=== PATIENT | male | born 1945 | race Caucasian/White ===

== ENCOUNTER 2021-04-08 13:53 | Outpatient (CLI) | payer MEDICARE, OTHER | END 2021-04-08 13:54 | disposition home or self-care (01) | LOC: LAB.N 13:53 | PROVIDERS: ATTEND Internal Medicine | DX: I48.21 Permanent atrial fibrillation (principal); I10 Essential (primary) hypertension; Z12.5 Encounter for screening for malignant neoplasm of prostate | CPT/HCPCS: 36416; 85610 ==

== ENCOUNTER 2021-05-26 08:00 | Outpatient (CLI) | payer MEDICARE, OTHER | END 2021-05-26 23:59 | disposition home or self-care (01) | LOC: LAB.N 08:00 | PROVIDERS: ATTEND Internal Medicine | DX: I48.21 Permanent atrial fibrillation (principal); Z79.01 Long term (current) use of anticoagulants ==

== ENCOUNTER 2021-06-09 08:00 | Outpatient (CLI) | payer MEDICARE, OTHER | END 2021-06-09 23:59 | disposition home or self-care (01) | LOC: LAB.N 08:00 | PROVIDERS: ATTEND Internal Medicine | DX: I48.21 Permanent atrial fibrillation (principal); Z79.01 Long term (current) use of anticoagulants ==

== ENCOUNTER 2021-06-16 08:00 | Outpatient (CLI) | payer MEDICARE, OTHER | END 2021-06-16 23:59 | disposition home or self-care (01) | LOC: LAB.F 08:00 | PROVIDERS: ATTEND Internal Medicine | DX: I48.21 Permanent atrial fibrillation (principal); Z79.01 Long term (current) use of anticoagulants ==

== ENCOUNTER 2021-06-16 08:00 | Outpatient (CLI) | payer MEDICARE, OTHER | END 2021-06-16 23:59 | disposition home or self-care (01) | LOC: LAB.N 08:00 | PROVIDERS: ATTEND Internal Medicine | DX: I48.21 Permanent atrial fibrillation (principal); Z79.01 Long term (current) use of anticoagulants ==

== ENCOUNTER 2021-06-30 08:00 | Outpatient (CLI) | payer MEDICARE, OTHER | END 2021-06-30 23:59 | disposition home or self-care (01) | LOC: LAB.N 08:00 | PROVIDERS: ATTEND Internal Medicine | DX: I48.21 Permanent atrial fibrillation (principal); Z79.01 Long term (current) use of anticoagulants ==

== ENCOUNTER 2021-07-04 11:15 | Emergency (ER) | payer MEDICARE, OTHER ==
[2021-07-04 12:35] LABS: BASOPHILS % (AUTO) 0.4 %; EOSINOPHILS # (AUTO) 0.1 10^3/uL (0.0-0.7); EOSINOPHILS % (AUTO) 1.1 %; HCT - HEMATOCRIT 41.9 % (42.0-52.0); HGB - HEMOGLOBIN 14.4 g/dL (14.0-18.0); LYMPHOCYTES # (AUTO) 1.3 10^3/uL (1.5-3.5); LYMPHOCYTES % (AUTO) 17.9 %; MEAN CORPUSCULAR HEMOGLOBIN 32.2 pg (27.0-31.0); MEAN CORPUSCULAR HGB CONC 34.4 g/dL (32.0-36.0); MEAN CORPUSCULAR VOLUME 93.7 fL (80.0-94.0); MONOCYTES # (AUTO) 0.6 10^3/uL (0.0-1.0); MONOCYTES % (AUTO) 8.7 %; NEUTROPHILS % (AUTO) 71.6 %; PLT - PLATELET COUNT 141 10^3/uL (130-450); RED BLOOD COUNT 4.47 10^6/uL (4.70-6.10); RED CELL DISTRIBUTION WIDTH 13.4 % (12.0-15.0)
[2021-07-04 12:45] LABS: INR 2.6 (0.8-1.2); PT - PROTHROMBIN TIME 29.4 secs (9.9-12.6)
[2021-07-04 12:46] LABS: CALCIUM 8.8 mg/dL (8.5-10.3); CREATININE 1.1 mg/dL (0.6-1.2); POTASSIUM 4.1 mmol/L (3.5-5.0)
--- NOTE | 2021-07-04 12:56 | ED Physician Documentation ---
PD HPI LOWER EXT INJURY - Stated complaint Stated Complaint: R LEG STIFN,PX - Chief complaint Chief Complaint: Ext Problem - History obtained from History obtained from: Patient - Additional information Additional information: He was hospitalized for cellulitis about 6 years ago. He thinks his cat might of scratched his right leg and now has a weeping wound with tightness in the leg but no pain per se. No fevers or chills. Review of Systems Constitutional: reports: Reviewed and negative Eyes: reports: Reviewed and negative Ears: reports: Reviewed and negative Cardiac: reports: Reviewed and negative Respiratory: reports: Reviewed and negative PD PAST MEDICAL HISTORY - Past Medical History Cardiovascular: Atrial fibrillation Derm: Other - Past Surgical History Past Surgical History: Yes General: Other Derm: Skin cancer surgery - Present Medications Home Medications: Ambulatory Orders Medication Instructions Recorded Confirmed Atorvastatin [Lipitor] 10 mg DAILY 06/06/15 07/04/21 Metoprolol Tartrate [Lopressor] 25 mg PO DAILY 06/06/15 07/04/21 Warfarin [Coumadin] 2.5 mg PO 1400 06/06/15 07/04/21 Amox/Clav 875/125 [Augmentin] 1 each PO Q12H #20 tablet 07/04/21 Lisinopril [Zestril] 2.5 mg PO DAILY 07/04/21 07/04/21 - Allergies Allergies/Adverse Reactions: Allergies Allergy/AdvReac Type Severity Reaction Status Date / Time No Known Drug Allergies Allergy Verified 07/04/21 11:51 - Social History Does the pt smoke?: No Smoking Status: Never smoker Does the pt drink ETOH?: No Does the pt have substance abuse?: No PD ED PE NORMAL - Vitals Vital signs reviewed: Yes - General General: Alert and oriented X 3, No acute distress - Extremities Extremities: Other (There is a small ulcer leaking clear fluid which was cultured during exam to the anterior mid right lower leg. He has cellulitis distal to that.) - Neuro Neuro: Alert and oriented X 3, Normal speech Results - Vitals Vitals: Vital Signs - 24 hr 07/04/21 11:48 Temperature 36.6 C Heart Rate 87 Respiratory 16 Rate Blood Pressure 140/80 H O2 Saturation 96 Oxygen O2 Source Room air - Labs Labs: Laboratory Tests 07/04/21 07/04/21 07/04/21 12:30 12:30 12:30 WBC 7.0 RBC 4.47 L Hgb 14.4 Hct 41.9 L MCV 93.7 MCH 32.2 H MCHC 34.4 RDW 13.4 Plt Count 141 MPV 11.0 Neut # (Auto) 5.0 Lymph # (Auto) 1.3 L Brooks # (Auto) 0.6 Eos # (Auto) 0.1 Baso # (Auto) 0.0 Absolute Nucleated RBC 0.00 Nucleated RBC % 0.0 PT 29.4 H INR 2.6 H Sodium 137 Potassium 4.1 Chloride 104 Carbon Dioxide 23 Anion Gap 10.0 BUN 20 Creatinine 1.1 Estimated GFR (MDRD) 65 L Glucose 112 H Calcium 8.8 PD MEDICAL DECISION MAKING - ED course ED course: Chose Augmentin given that it was a potential cat scratch. A culture was taken during exam. Nothing in the labs or physical exam that would suggest need for inpatient therapy at this juncture. 75-year-old gentleman on anticoagulation presents with cellulitis of the right lower extremity. Departure - Departure Disposition: 01 Home, Self Care Clinical Impression: Cellulitis, Adequate anticoagulation on anticoagulant therapy Condition: Good Record reviewed to determine appropriate education?: Yes Instructions: ED Infec Skin Cellulitis Prescriptions: Amox/Clav 875/125 [Augmentin] 1 each PO Q12H #20 tablet Comments: I sent your prescription to [facility] in [place]. Second dose of antibiotics tonight. Often times when you start antibiotics while you are taking anticoagulants such as Coumadin or warfarin, your INR will go up. Recommend skipping your dose on Wednesday. Your INR today was 2.6. Have it checked in 3 days, again in 6 days, and at least weekly while you are on antibiotics. Dose adjustments of your anticoagulants may be necessary. Follow-up with your doctor Wednesday or Wednesday for recheck. Return if worsening. We are performing a wound culture, the results should be done in 48-72 hours. If antibiotic change is necessary we will call you.
[2021-07-04] MEDS: AMOX/CLAV 875 MG/125 MG TABLET PO STA (13:06)
[2021-07-04 13:14] VITALS: BP 135/80
== END 2021-07-04 13:15 | disposition home or self-care (01) ==
LOC: ED 11:15
DX: L03.115 Cellulitis of right lower limb (principal); I48.91 Unspecified atrial fibrillation; Z79.01 Long term (current) use of anticoagulants
CPT/HCPCS: 36415; 80048; 85025; 85610; 87070; 87205; 99283; A9270

== ENCOUNTER 2021-07-12 13:32 | Outpatient (CLI) | payer MEDICARE, OTHER ==
[2021-07-12 16:56] LABS: BASOPHILS % (AUTO) 0.7 %; EOSINOPHILS # (AUTO) 0.1 10^3/uL (0.0-0.7); EOSINOPHILS % (AUTO) 1.5 %; HCT - HEMATOCRIT 45.4 % (42.0-52.0); HGB - HEMOGLOBIN 15.3 g/dL (14.0-18.0); LYMPHOCYTES # (AUTO) 1.3 10^3/uL (1.5-3.5); LYMPHOCYTES % (AUTO) 21.9 %; MEAN CORPUSCULAR HEMOGLOBIN 31.9 pg (27.0-31.0); MEAN CORPUSCULAR HGB CONC 33.7 g/dL (32.0-36.0); MEAN CORPUSCULAR VOLUME 94.8 fL (80.0-94.0); MEAN PLATELET VOLUME 11.8 fL (7.4-11.4); MONOCYTES # (AUTO) 0.5 10^3/uL (0.0-1.0); MONOCYTES % (AUTO) 7.9 %; NEUTROPHILS % (AUTO) 67.8 %; PLT - PLATELET COUNT 148 10^3/uL (130-450); RED BLOOD COUNT 4.79 10^6/uL (4.70-6.10); RED CELL DISTRIBUTION WIDTH 13.5 % (12.0-15.0); WHITE BLOOD COUNT 5.9 x10^3/uL (4.8-10.8)
[2021-07-12 17:12] LABS: ALBUMIN 3.9 g/dL (3.2-5.5); ALBUMIN/GLOBULIN RATIO 1.3 (1.0-2.2); ALKALINE PHOSPHATASE 61 IU/L (42-121); ALT ALANINE AMINOTRANSFERASE 23 IU/L (10-60); AST ASPARTATE AMINOTRANSFERASE 36 IU/L (10-42); BILIRUBIN,TOTAL 0.9 mg/dL (0.2-1.0); BUN - BLOOD UREA NITROGEN 18 mg/dL (6-20); CALCIUM 8.8 mg/dL (8.5-10.3); CARBON DIOXIDE - CO2 25 mmol/L (21-32); CHLORIDE 105 mmol/L (101-111); CHOLESTEROL 160 mg/dL; CREATININE 1.1 mg/dL (0.6-1.2); GFR - MDRD 65 (>89); GLUCOSE 94 mg/dL (70-100); HDL CHOLESTEROL 53 mg/dL; LDL CHOLESTEROL,CALCULATED 82 mg/dL; LDL/HDL RATIO 1.5 (<3.6); SODIUM 138 mmol/L (135-145); TOTAL PROTEIN 6.9 g/dL (6.7-8.2); TRIGLYCERIDES 127 mg/dL; VLDL CHOLESTEROL 25 mg/dL
== END 2021-07-12 13:33 | disposition home or self-care (01) ==
LOC: LAB.N 13:32
PROVIDERS: ATTEND Internal Medicine
DX: I10 Essential (primary) hypertension (principal); Z79.01 Long term (current) use of anticoagulants; Z12.5 Encounter for screening for malignant neoplasm of prostate
CPT/HCPCS: 36415; 80053; 80061; 85025; G0103; 83721; 84153

== ENCOUNTER 2021-07-24 17:52 | Outpatient (CLI) | payer MEDICARE, OTHER ==
--- NOTE | 2021-07-24 19:02 | Ultrasound Report ---
PROCEDURE: Duplex Ext Veins Right INDICATIONS: RLE EDEMA TECHNIQUE: Real-time imaging, as well as color and pulse Doppler interrogation, were performed of the lower extr emity deep veins from the inguinal ligament to the popliteal fossa. COMPARISON: Duplex ultrasound, right intermediate, 08/04/2015. FINDINGS: The deep veins are normally compressible, and free of intraluminal thrombus. Color and pu lse Doppler demonstrate normal phasic intraluminal flow. There is normal augmentation response to di stal compression maneuver. The right calf veins are not well seen. IMPRESSION: No evidence for deep venous thrombosis in the right lower extremity. Reviewed by: Malik Champion MD on 07/24/2021 7:01 PM PDT Approved by: Malik Champion MD on 07/24/2021 7:01 PM PDT Station ID: [id number]
== END 2021-07-24 17:53 | disposition home or self-care (01) ==
LOC: DI 17:52
PROVIDERS: ATTEND Internal Medicine
DX: R60.9 Edema, unspecified (principal)

== ENCOUNTER 2021-07-31 14:36 | Outpatient (CLI) | payer MEDICARE, OTHER ==
--- NOTE | 2021-07-31 15:43 | CT Report ---
PROCEDURE: HEAD WO INDICATIONS: MEMORY LOSS TECHNIQUE: Noncontrast 4.5 mm thick angled axial sections acquired from the foramen magnum to the vertex. For r adiation dose reduction, the following was used: automated exposure control, adjustment of mA and/or kV according to patient size. COMPARISON: None. FINDINGS: Mild global cerebral volume loss with passive expansion of the ventricular system and extra-axial spa tian. Moderate chronic microvascular ischemic changes. No acute intracranial hemorrhage. No findings o f mass effect or midline shift. The ventricular system and basilar cisterns are patent. There is intr acranial vertebral artery and carotid artery atherosclerotic disease. Orbital structures are normal. Paranasal sinuses and mastoid air cells are predominantly clear. Regional osseous structures intact. IMPRESSION: No acute intracranial finding. Mild global cerebral volume loss. Moderate chronic microvascular ischemic changes. Reviewed by: Matthias Carranza MD on 07/31/2021 3:42 PM PDT Approved by: Matthias Carranza MD on 07/31/2021 3:42 PM PDT Station ID: [id number]
== END 2021-07-31 14:37 | disposition home or self-care (01) ==
LOC: DI 14:36
PROVIDERS: ATTEND Internal Medicine
DX: R41.3 Other amnesia (principal); G31.89 Other specified degenerative diseases of nervous system; I67.82 Cerebral ischemia

== ENCOUNTER 2021-08-04 08:00 | Outpatient (CLI) | payer MEDICARE, OTHER | END 2021-08-04 08:01 | disposition home or self-care (01) | LOC: LAB.N 08:00 | PROVIDERS: ATTEND Registered Nurse | DX: I48.21 Permanent atrial fibrillation (principal); Z79.01 Long term (current) use of anticoagulants ==

== ENCOUNTER 2021-08-08 03:53 | Emergency (ER) | payer MEDICARE, OTHER ==
--- OUTSIDE RECORDS SUMMARY | 2021-08-08 04:11 | EXTERNAL MEDICAL SUMMARY RPT | Continuity of Care Document ---
:1945 Author Organization [facility] Address [address] [place] [address] Phone Care Team Providers Name Role Phone RN Unavailable Unavailable Allergies No information. Encounters No information. Medications No information. Problems date description facility [id number] Raised prostate specific antigen [facility] [id number] Elevated prostate specific [facility]PSA[facility] [id number] INR [facility] Prim shireen [facility] & Anc[facility] Procedures date description facility [id number] ANTICOAG MGMT PT [facility] [id number] POC PROTHROMBIN TIME [facility] Pr [facility]ary [facility] [id number] ANTICOAG MGMT PT [facility] [id number] POC PROTHROMBIN TIME [facility] [id number] ANTICOAG MGMT PT [facility] [id number] POC PROTHROMBIN TIME [facility] [id number] ANTICOAG MGMT PT [facility] [id number] POC PROTHROMBIN TIME [facility] [id number] ANTICOAG MGMT PT [facility] [id number] POC PROTHROMBIN TIME [facility] [id number] ANTICOAG MGMT PT [facility] [id number] POC PROTHROMBIN TIME [facility] [id number] ANTICOAG MGMT PT [facility] [id number] POC PROTHROMBIN TIME [facility] Results test status date ordered by attending specimen malik e INR_in_Platelet_poor_p unknown [id number] unknown unknown unknown lasma_by_Coagulation_as say international_normaliz unknown [id number] unknown unknown unknown ed_ratio_INR_ urea_nitrogen_blood unknown [id number] unknown unknown unk nown Erythrocytes_volume_in unknown 32060118 unknown unknown unknown _Blood_by_Automated_cou nt Erythrocyte_distributi unknown 09926644 unknown unknown unknown on_width_Ratio_by_Autom ated_count MCV_Entitic_volume_by_ unknown 72303888 unknown unknown unknown Automated_count MCH_Entitic_mass_by_Au unknown 89772842 unknown unknown unknown tomated_count Platelets_volume_in_Bl unknown 20171624 unknown unknown unknown ood_by_Automated_count Platelet_mean_volume_E unknown 36958957 unknown unknown unknown ntitic_volume_in_Blood_ by_Rees-James neutrophil_count_blood unknown 88953877 unknown unknown unknown monocyte_count_blood unknown 74973744 unknown unknown un known lymphocyte_count_blood unknown 15613093 unknown unknown unknown Hemoglobin_Mass_volume unknown 11156877 unknown unknown unknown _in_Blood eosinophil_count_blood unknown 57404296 unknown unknown unknown Basophils_volume_in_Bl unknown 45560487 unknown unknown unknown ood_by_Manual_count leukocyte_count_blood unknown 17905400 unknown unknown u nknown erythrocyte_RBC_count unknown 17380358 unknown unknown u nknown Leukocytes_volume_in_B unknown 70111304 unknown unknown unknown lood_by_Automated_count Glomerular_Filtration_ unknown 68382804 unknown unknown unknown rate platelet_count unknown 30971300 unknown unknown unknown hemoglobin_blood unknown 80922787 unknown unknown unknow n hematocrit_blood unknown 83833956 unknown unknown unknow n potassium_blood unknown 58024378 unknown unknown unknown Glomerular_filtration_r unknown 72907182 unknown unknown unknown ate_1.73_sq_M.predicted _among_non-blacks_Volum e_Rate_Area_in_Serum_Pl asma_or_Blood_by_Creati nine-based_formula_MDRD _ Hematocrit_Volume_Frac unknown 10373655 unknown unknown unknown tion_of_Blood_by_Automa ted_count triglyceride_serum_fas unknown 82047629 unknown unknown unknown ting bilirubin_serum_total unknown 22322709 unknown unknown u nknown alanine_aminotransfera unknown 27847163 unknown unknown unknown se_SGPT_serum carbon_dioxide_serum_t unknown 91801558 unknown unknown unknown otal aspartate_aminotransfe unknown 16024098 unknown unknown unknown rase_SGOT_serum prostate_specific_anti unknown 75273069 unknown unknown unknown gen protein_total_serum unknown 25618842 unknown unknown unk nown blood_glucose unknown 35768952 unknown unknown unknown potassium_blood unknown 14209414 unknown unknown unknown mean_corpuscular_volum unknown 00414057 unknown unknown unknown e_RBC Urea_nitrogen_Mass_vol unknown 18938569 unknown unknown unknown ume_in_Serum_or_Plasma globulin_serum unknown 56261097 unknown unknown unknown LDL_cholesterol_serum unknown 36175135 unknown unknown u nknown alkaline_phosphatase_s unknown 79558512 unknown unknown unknown lloyd Sodium_Moles_volume_in unknown 11089558 unknown unknown unknown _Serum_or_Plasma Protein_Mass_volume_in unknown 64610234 unknown unknown unknown _Serum_or_Plasma Prostate_specific_Ag_M unknown 35066288 unknown unknown unknown ass_volume_in_Serum_or_ Plasma eosinophil_count_blood unknown 08260259 unknown unknown unknown anion_gap_serum unknown 86382836 unknown unknown unknown mean_platelet_volume unknown 80052834 unknown unknown un known HDL_cholesterol_serum unknown 26986462 unknown unknown u nknown Triglyceride_Mass_volu unknown 68693444 unknown unknown unknown me_in_Serum_or_Plasma_- _mg_dL very_low_density_lipop unknown 83946378 unknown unknown unknown roteins LDL_HDL_low-density_li unknown 86279839 unknown unknown unknown poprotein_high-density_ lipoprotein_ratio basophil_count_blood unknown 56811156 unknown unknown un known monocyte_count_blood unknown 42331848 unknown unknown un known lymphocyte_count_blood unknown 11591540 unknown unknown unknown neutrophil_count_blood unknown 02566705 unknown unknown unknown cholesterol_HDL_ratio_ unknown 85898842 unknown unknown unknown serum_percent Glucose_Mass_volume_in unknown 04920943 unknown unknown unknown _Serum_or_Plasma Globulin_Mass_volume_i unknown 20069145 unknown unknown unknown n_Serum Creatinine_Mass_volume unknown 32488683 unknown unknown unknown _in_Serum_or_Plasma cholesterol_HDL_ratio_ unknown 88123265 unknown unknown unknown serum_percent Cholesterol_Mass_volum unknown 46007355 unknown unknown unknown e_in_Serum_or_Plasma_-_ mg_dL Cholesterol_in_VLDL_Ma unknown 70553312 unknown unknown unknown ss_volume_in_Serum_or_P lasma Cholesterol_in_LDL_Mas unknown 81367816 unknown unknown unknown s_volume_in_Serum_or_Pl asma_-_mg_dL Cholesterol_in_HDL_Mas unknown 16637032 unknown unknown unknown s_volume_in_Serum_or_Pl asma_-_mg_dL Chloride_Moles_volume_ unknown 31966233 unknown unknown unknown in_Serum_or_Plasma carbon_dioxide_serum_t unknown 22057734 unknown unknown unknown otal Calcium_Moles_volume_i unknown 05306141 unknown unknown unknown n_Serum_or_Plasma albumin_serum unknown 35837614 unknown unknown unknown Bilirubin.total_Mass_v unknown 86296443 unknown unknown unknown olume_in_Serum_or_Plasm a Aspartate_aminotransfe unknown 28990326 unknown unknown unknown rase_Enzymatic_activity _volume_in_Serum_or_Pla sma Anion_gap_4_in_Serum_o unknown 62731175 unknown unknown unknown r_Plasma creatinine_serum unknown 81321098 unknown unknown unknow n Alkaline_phosphatase_E unknown 61183411 unknown unknown unknown nzymatic_activity_volum e_in_Blood Albumin_Globulin_Mass_ unknown 80944797 unknown unknown unknown Ratio_in_Serum_or_Plasm a Albumin_Mass_volume_in unknown 33636604 unknown unknown unknown _Serum_or_Plasma Alanine_aminotransfera unknown 22439009 unknown unknown unknown se_Enzymatic_activity_v olume_in_Serum_or_Plasm a mean_corpuscular_hemog unknown 16362221 unknown unknown unknown lobin_concentration_rbc sodium_serum unknown 57014820 unknown unknown unknown albumin_globulin_ratio unknown 69748629 unknown unknown unknown _serum cholesterol_serum unknown 53821799 unknown unknown unkno wn chloride_serum unknown 04162412 unknown unknown unknown calcium_serum unknown 18581437 unknown unknown unknown mean_corpuscular_hemog unknown 35151995 unknown unknown unknown lobin_RBC red_blood_cell_distrib unknown 22469135 unknown unknown unknown ution_width T unknown 42978293 unknown unknown unknown T unknown 05742843 unknown unknown unknown T unknown 98764329 unknown unknown unknown T unknown 72883442 unknown unknown unknown T unknown 46273275 unknown unknown unknown T unknown 45440040 unknown unknown unknown T unknown 33333621 unknown unknown unknown T unknown 37843070 unknown unknown unknown T unknown 18150501 unknown unknown unknown NEUTROPHILS_AUTO_ unknown 66288237 unknown unknown unkno wn T unknown 08999637 unknown unknown unknown T unknown 58984260 unknown unknown unknown T unknown 35801220 unknown unknown unknown MONOCYTES_AUTO_ unknown 59822111 unknown unknown unknown T unknown 83930504 unknown unknown unknown T unknown 01676682 unknown unknown unknown T unknown 91899306 unknown unknown unknown T unknown 24676649 unknown unknown unknown LYMPHOCYTES_AUTO_ unknown 52396398 unknown unknown unkno wn T unknown 96324127 unknown unknown unknown T unknown 01837831 unknown unknown unknown T unknown 50899599 unknown unknown unknown LDL_HDL_RATIO unknown 08356663 unknown unknown unknown LDL_CHOLESTEROL_CALCUL unknown 38293857 unknown unknown unknown ATED T unknown 47499761 unknown unknown unknown T unknown 83715631 unknown unknown unknown T unknown 95498402 unknown unknown unknown T unknown 41637577 unknown unknown unknown T unknown 82983547 unknown unknown unknown T unknown 39494383 unknown unknown unknown T unknown 30408283 unknown unknown unknown GFR_-_MDRD unknown 13184568 unknown unknown unknown T unknown 01133438 unknown unknown unknown EOSINOPHILS_AUTO_ unknown 62679334 unknown unknown unkno wn T unknown 60443415 unknown unknown unknown T unknown 63190398 unknown unknown unknown T unknown 52775981 unknown unknown unknown T unknown 22655721 unknown unknown unknown T unknown 55381986 unknown unknown unknown T unknown 77620423 unknown unknown unknown CHOL_HDL_RATIO unknown 34561137 unknown unknown unknown T unknown 59321555 unknown unknown unknown T unknown 78499365 unknown unknown unknown BILIRUBIN_TOTAL unknown 30872198 unknown unknown unknown BASOPHILS_AUTO_ unknown 00857802 unknown unknown unknown T unknown 67358141 unknown unknown unknown T unknown 48573693 unknown unknown unknown T unknown 16972516 unknown unknown unknown T unknown 89065462 unknown unknown unknown ALT_ALANINE_AMINOTRANS unknown 78896168 unknown unknown unknown FERASE ALKALINE_PHOSPHATASE unknown 74697343 unknown unknown un known T unknown 00956517 unknown unknown unknown T unknown 19792836 unknown unknown unknown ALBUMIN_GLOBULIN_RATIO unknown 99403936 unknown unknown unknown Prothrombin_time_PT_ unknown 09833692 unknown unknown un known prothrombin_time_patie unknown 87191397 unknown unknown unknown nt_ T unknown 51738160 unknown unknown unknown facility observation status value reference units lab code abn ormal line range notes [facility] INR_in_Plate unknown 3.0 unknown _6301-6 unkno wn unknown Clinic let_poor_plas Primary ma_by_Coagula Care & tion_assay Ancillary Services [facility] internationa unknown 3.0 unknown _309 unknow n unknown Clinic l_normalized_ Primary ratio_INR_ Care & [facility] urea_nitroge unknown 18 unknown mg/dL _9 unknow n unknown Clinic n_blood Primary [facility] Erythrocytes unknown 4.79 unknown _789-8 unknow n unknown Clinic _volume_in_Bl 10 6/UL Primary ood_by_Automa Care & ted_count Ancillary Services [facility] Erythrocyte_ unknown 13.5 unknown % _788-0 unknow n unknown Clinic distribution_ Primary width_Ratio_b Care & y_Automated_c Ancillary ount Services [facility] MCV_Entitic_ unknown 94.8 unknown fL _787-2 unknow n unknown Clinic volume_by_Aut Primary omated_count Care & [facility]illary [facility] MCH_Entitic_ unknown 31.9 unknown pg _785-6 unknow n unknown Clinic mass_by_Autom Primary ated_count Care & [facility]illary [facility] Platelets_vo unknown 148 10 unknown _777-3 unknow n unknown Clinic lume_in_Blood 3/UL Primary _by_Automated Care & _count Ancillary [facility] Platelet_mea unknown 11.8 unknown fL _776-5 unknow n unknown Clinic n_volume_Enti Primary tic_volume_in Care & _Blood_by_Ree Ancillary s-James [facility] neutrophil_c unknown 4.0 10 unknown _752-6 unknow n unknown Clinic ount_blood 3/UL Primary [facility] monocyte_cou unknown 0.5 10 unknown _743-5 unknow n unknown Clinic nt_blood 3/UL Primary [facility] lymphocyte_c unknown 1.3 10 unknown _732-8 unknow n unknown Clinic ount_blood 3/UL Primary [facility] Hemoglobin_M unknown 15.3 unknown g/dL _718-7 unknow n unknown Clinic ass_volume_in Primary _Blood Care & [facility] eosinophil_c unknown 0.1 10 unknown _712-0 unknow n unknown Clinic ount_blood 3/UL Primary [facility] Basophils_vo unknown 0.0 10 unknown _705-4 unknow n unknown Clinic lume_in_Blood 3/UL Primary _by_Manual_co Care & unt [facility] leukocyte_co unknown 5.9 unknown _68 unknow n unknown Clinic unt_blood X10 Primary 3/UL Care & [facility] erythrocyte_ unknown 4.79 unknown _67 unknow n unknown Clinic RBC_count 10 6/UL Primary [facility] Leukocytes_v unknown 5.9 unknown _6690-2 unkno wn unknown Clinic olume_in_Bloo X10 Primary d_by_Automate 3/UL Care & d_count [facility]illary [facility] Glomerular_F unknown 65 unknown mL/min _66455 unknow n unknown Clinic iltration_rat Primary e [facility] platelet_cou unknown 148 10 unknown _66 unknow n unknown Clinic nt 3/UL Primary [facility] hemoglobin_b unknown 15.3 unknown g/dL _65 unknow n unknown Clinic lood [facility] hematocrit_b unknown 45.4 unknown % _64 unknow n unknown Clinic lood [facility] potassium_bl unknown 4.0 unknown meq/L _6298-4 unkno wn unknown Clinic ood [facility] Glomerular_fi unknown 65 unknown mL/min _48642-3 unkn own unknown Clinic ltration_rate Primary _1.73_sq_M.pr Care & edicted_among Ancillary _non-blacks_V Services olume_Rate_Ar [facility] ea_in_Serum_P lasma_or_Bloo d_by_Creatini ne-based_form ula_MDRD_ [facility] Hematocrit_V unknown 45.4 unknown % _4544-3 unkno wn unknown Clinic olume_Fractio Primary n_of_Blood_by Care & _Automated_co Ancillary unt Services [facility] triglyceride unknown 127 unknown mg/dL _44 unknow n unknown Clinic _serum_fastin Primary g [facility] bilirubin_se unknown 0.9 unknown mg/dL _43 unknow n unknown Clinic rum_total [facility] alanine_amin unknown 23 unknown U/L _40 unknow n unknown Clinic otransferase_ Primary SGPT_serum [facility] carbon_dioxi unknown 25 unknown mmol/L _3962 unknow n unknown Clinic de_serum_tota Primary l [facility] aspartate_am unknown 36 unknown U/L _39 unknow n unknown Clinic inotransferas Primary e_SGOT_serum Care & [facility] prostate_spe unknown 6.840 unknown ng/mL _37 unknow n unknown Clinic cific_antigen Primary [facility] protein_tota unknown 6.9 unknown g/dL _36 unknow n unknown Clinic l_serum [facility] blood_glucos unknown 94 unknown mg/dL _3565 unknow n unknown Clinic e [facility] potassium_bl unknown 4.0 unknown meq/L _3483 unknow n unknown Clinic ood [facility] mean_corpusc unknown 94.8 unknown fL _315 unknow n unknown Clinic ular_volume_R Primary BC Care & [facility] Urea_nitroge unknown 18 unknown mg/dL _3094-0 unkno wn unknown Clinic n_Mass_volume Primary _in_Serum_or_ Care & Plasma [facility] globulin_ser unknown 3.0 unknown _3059 unknow n unknown Clinic um [facility] LDL_choleste unknown 82 unknown mg/dL _30 unknow n unknown Clinic rol_serum [facility] alkaline_pho unknown 61 unknown U/L _3 unknow n unknown Clinic sphatase_seru Primary m [facility] Sodium_Moles unknown 138 unknown mmol/L _2951-2 unkno wn unknown Clinic _volume_in_Se Primary rum_or_Plasma Care & [facility] Protein_Mass unknown 6.9 unknown g/dL _2885-2 unkno wn unknown Clinic _volume_in_Se Primary rum_or_Plasma [facility] Prostate_spe unknown 6.840 unknown ng/mL _2857-1 unkno wn unknown Clinic cific_Ag_Mass Primary _volume_in_Se Care & rum_or_Plasma [facility] eosinophil_c unknown 0.1 10 unknown _285 unknow n unknown Clinic ount_blood 3/UL Primary [facility] anion_gap_se unknown 8.0 unknown _279 unknow n unknown Clinic rum [facility] mean_platele unknown 11.8 unknown fL _2784 unknow n unknown Clinic t_volume Primary [facility] HDL_choleste unknown 53 unknown mg/dL _26 unknow n unknown Clinic rol_serum [facility] Triglyceride unknown 127 unknown mg/dL _2571-8 unkno wn unknown Clinic _Mass_volume_ Primary in_Serum_or_P Care & lasma_-_mg_dL Ancillary [facility] very_low_den unknown 25 unknown mg/dL _2548 unknow n unknown Clinic sity_lipoprot Primary eins Care & [facility]illary [facility] LDL_HDL_low- unknown 1.5 unknown _25165 unknow n unknown Clinic density_lipop (?) Primary rotein_high-d Care & ensity_lipopr Ancillary otein_ratio Services [facility] basophil_cou unknown 0.0 10 unknown _2427 unknow n unknown Clinic nt_blood 3/UL Primary [facility] monocyte_cou unknown 0.5 10 unknown _2422 unknow n unknown Clinic nt_blood 3/UL Primary [facility] lymphocyte_c unknown 1.3 10 unknown _2420 unknow n unknown Clinic ount_blood 3/UL Primary [facility] neutrophil_c unknown 4.0 10 unknown _2418 unknow n unknown Clinic ount_blood 3/UL Primary [facility] cholesterol_ unknown 3.0 unknown _2404 unknow n unknown Clinic HDL_ratio_ser Primary um_percent Care & Ancillary [facility] Glucose_Mass unknown 94 unknown mg/dL _2344-10 unkno wn unknown Clinic _volume_in_Se Primary rum_or_Plasma Care & [facility] Globulin_Mas unknown 3.0 unknown _2335-6 unkno wn unknown Clinic s_volume_in_S Primary lloyd Care & Ancillary [facility] Creatinine_M unknown 1.1 unknown mg/dL _ unkno wn unknown Clinic ass_volume_in Primary _Serum_or_Pla Care & sma [facility]illary [facility] cholesterol_ unknown 3.0 unknown _2094-11 unkno wn unknown Clinic HDL_ratio_ser Primary um_percent Care & Ancillary [facility] Cholesterol_ unknown 160 unknown mg/dL _2092-06 unkno wn unknown Clinic Mass_volume_i Primary n_Serum_or_Pl Care & asma_-_mg_dL Ancillary [facility] Cholesterol_ unknown 25 unknown mg/dL _2090-10 unkno wn unknown Clinic in_VLDL_Mass_ Primary volume_in_Ser Care & um_or_Plasma [facility]illary [facility] Cholesterol_ unknown 82 unknown mg/dL _2088-04 unkno wn unknown Clinic in_LDL_Mass_v Primary olume_in_Seru Care & m_or_Plasma_- Ancillary _mg_dL Services [facility] Cholesterol_ unknown 53 unknown mg/dL _2084-12 unkno wn unknown Clinic in_HDL_Mass_v Primary olume_in_Seru Care & m_or_Plasma_- Ancillary _mg_dL Services [facility] Chloride_Mol unknown 105 unknown mmol/L _ unkno wn unknown Clinic es_volume_in_ Primary Serum_or_Plas Care & ma Ancillary [facility] carbon_dioxi unknown 25 unknown mmol/L _2027-12 unkno wn unknown Clinic de_serum_tota Primary l Care & [facility] Calcium_Mole unknown 8.8 unknown mg/dL _1999-11 unkno wn unknown Clinic s_volume_in_S Primary erum_or_Plasm Care & a [facility]illary [facility] albumin_seru unknown 3.9 unknown g/dL _2 unknow n unknown Clinic m Primary [facility] Bilirubin.to unknown 0.9 unknown mg/dL _1974- unkno wn unknown Clinic tal_Mass_volu Primary me_in_Serum_o Care & r_Plasma [facility]illary [facility] Aspartate_am unknown 36 unknown U/L _1920-8 unkno wn unknown Clinic inotransferas Primary e_Enzymatic_a Care & ctivity_volum Ancillary e_in_Serum_or Services _Plasma [facility] Anion_gap_4_ unknown 8.0 unknown _1863-0 unkno wn unknown Clinic in_Serum_or_P Primary lasma Care & Ancillary Services [facility] creatinine_s unknown 1.1 unknown mg/dL _18 unknow n unknown Clinic lloyd Primary Care & [facility] Alkaline_pho unknown 61 unknown U/L _1783-0 unkno wn unknown Clinic sphatase_Enzy Primary matic_activit Care & y_volume_in_B Ancillary lood Services [facility] Albumin_Glob unknown 1.3 unknown _1759-0 unkno wn unknown Clinic ulin_Mass_Rat Primary io_in_Serum_o Care & r_Plasma [facility]illary [facility] Albumin_Mass unknown 3.9 unknown g/dL _1751-7 unkno wn unknown Clinic _volume_in_Se Primary rum_or_Plasma Care & Ancillary [facility] Alanine_amin unknown 23 unknown U/L _1742-6 unkno wn unknown Clinic otransferase_ Primary Enzymatic_act Care & ivity_volume_ Ancillary in_Serum_or_P Services lasma [facility] mean_corpusc unknown 33.7 unknown g/dL _17029 unknow n unknown Clinic ular_hemoglob Primary in_concentrat Care & ion_rbc Ancillary [facility] sodium_serum unknown 138 unknown mmol/L _159 unknow n unknown Clinic Primary Care & [facility] albumin_glob unknown 1.3 unknown _146 unknow n unknown Clinic ulin_ratio_se Primary rum Care & Ancillary [facility] cholesterol_ unknown 160 unknown mg/dL _14 unknow n unknown Clinic serum Primary Care & [facility] chloride_ser unknown 105 unknown mmol/L _13 unknow n unknown Clinic um Primary Care & [facility] calcium_seru unknown 8.8 unknown mg/dL _11 unknow n unknown Clinic m Primary Care [facility] mean_corpusc unknown 31.9 unknown pg _1031 unknow n unknown Clinic ular_hemoglob Primary in_RBC Care & [facility]illary [facility] red_blood_ce unknown 13.5 unknown % _1030 unknow n unknown Clinic ll_distributi Primary on_width Care & [facility]illary [facility] T unknown 5.9 unknown WBC unknown [facility] X10 Primary 3/UL Care & Ancillary Services [facility] T unknown 25 unknown mg/dL VLDL unknown [facility] Primary Care [facility] T unknown 127 unknown mg/dL TRIG unknown [facility] Primary Care & [facility] T unknown 0.9 unknown mg/dL TOTAL_BI unknown u [facility] LI Primary Care & Ancillary Services [facility] T unknown 13.5 unknown % RDW unknown [facility] Primary Care & Ancillary [facility] T unknown 4.79 unknown RBC unknown [facility] 10 6/UL Primary Care & Ancillary Services [facility] T unknown 6.840 unknown ng/mL PSA_SCRE unknown u [facility] EN Primary Care & Ancillary Services [facility] T unknown 6.9 unknown g/dL PRO_TOTA unknown u [facility] L Primary Care & Ancillary Services [facility] T unknown 148 10 unknown PLT unknown [facility] 3/UL Primary Care & Ancillary Services [facility] NEUTROPHILS_ unknown 4.0 10 unknown NE_ unknow n unknown Clinic AUTO_ 3/UL Primary Care & [facility]illary [facility] T unknown 4.0 10 unknown NEUT_AUT unknown u [facility] 3/UL O_ Primary Care & Ancillary Services [facility] T unknown 138 unknown mmol/L NA unknown [facility] Primary Care & [facility]illary [facility] T unknown 11.8 unknown fL MPV unknown [facility] Primary Care & [facility] MONOCYTES_AU unknown 0.5 10 unknown MO_ unknow n unknown Clinic TO_ 3/UL [facility] T unknown 0.5 10 unknown MONO_AUT unknown u [facility] 3/UL O_ [facility] T unknown 94.8 unknown fL MCV unknown [facility] T unknown 33.7 unknown g/dL MCHC unknown [facility] T unknown 31.9 unknown pg MCH unknown [facility] LYMPHOCYTES_ unknown 1.3 10 unknown LY_ unknow n unknown Clinic AUTO_ 3/UL [facility] T unknown 1.3 10 unknown LYMPH_AU unknown u [facility] 3/UL TO_ [facility] T unknown 1.5 unknown LDL_HDL_ unknown u [facility] (?) RATIO [facility] unknown 82 unknown mg/dL LDL_CALC unknown u [facility] LDL_HDL_RATI unknown 1.5 unknown LDLHDL unknow n unknown Clinic O (?) [facility] LDL_CHOLESTE unknown 82 unknown mg/dL LDLC unknow n unknown Clinic ROL_CALCULATE Primary [facility] T unknown 4.0 unknown meq/L K unknown [facility] T unknown 15.3 unknown g/dL HGB unknown [facility] T unknown 53 unknown mg/dL HDL unknown [facility] T unknown 45.4 unknown % HCT unknown [facility] T unknown 94 unknown mg/dL GLU unknown [facility] T unknown 3.0 unknown GLOB unknown [facility] T unknown 65 unknown mL/min GFR_-_MD unknown u [facility] RD [facility] GFR_-_MDRD unknown 65 unknown mL/min GFR unknown unknown Clinic [facility] T unknown 8.0 unknown GAP unknown [facility] EOSINOPHILS_ unknown 0.1 10 unknown EO_ unknow n unknown Clinic AUTO_ 3/UL [facility] T unknown 0.1 10 unknown EOS_AUTO unknown u [facility] 3/UL _ [facility] T unknown 1.1 unknown mg/dL CREAT unknown [facility] T unknown 25 unknown mmol/L CO2 unknown [facility] T unknown 105 unknown mmol/L CL unknown [facility] T unknown 3.0 unknown CHOL_HDL unknown u [facility] _RATIO [facility] T unknown 160 unknown mg/dL CHOL unknown [facility] CHOL_HDL_RAT unknown 3.0 unknown CHLHDL unknow n unknown Clinic IO [facility] T unknown 8.8 unknown mg/dL CA unknown [facility] T unknown 18 unknown mg/dL BUN unknown [facility] BILIRUBIN_TO unknown 0.9 unknown mg/dL BILIT unknow n unknown Clinic DORITA [facility] BASOPHILS_AU unknown 0.0 10 unknown BA_ unknow n unknown Clinic TO_ 3/UL [facility] T unknown 0.0 10 unknown BASO_AUT unknown u [facility] 3/UL O_ [facility] T unknown 1.3 unknown A_G_RATI unknown u [facility] O [facility] T unknown 36 unknown U/L AST unknown [facility] T unknown 23 unknown U/L ALT_SGPT unknown u [facility] _ [facility] ALT_ALANINE_ unknown 23 unknown U/L ALT unknow n unknown Clinic AMINOTRANSFER Primary A[facility] ALKALINE_PHO unknown 61 unknown U/L ALP unknow n unknown Clinic SPHATASE [facility] T unknown 61 unknown U/L ALK_PHOS unknown u nknown Clinic [facility] T unknown 3.9 unknown g/dL ALB unknown [facility] ALBUMIN_GLOB unknown 1.3 unknown AGRATIO unkno wn unknown Clinic ULIN_RATIO [facility] Prothrombin_ unknown 29.4 unknown _[id number] unkno wn unknown Clinic time_PT_ [facility] prothrombin_ unknown 29.4 unknown _50 unknow n unknown Clinic time_patient_ [facility] T unknown 29.4 unknown PT unknown [facility]
--- NOTE | 2021-08-08 04:31 | ED Physician Documentation ---
History of Present Illness - Stated complaint Stated Complaint: BLOOD IN STOOL - Chief complaint Chief Complaint: General - History obtained from History obtained from: Patient - Additonal information Additional information: Patient is a 75-year-old male with a history of atrial fibrillation on Coumadin presenting for evaluation of blood in his stools. Patient woke up this evening to have a bowel movement and when he wiped he noticed bright red blood on the toilet paper. When he looked in the toilet bowl there was a large amount of blood mixed in with regular colored stool. He denies abdominal pain. He does have a history of hemorrhoids. He denies fever, chest pain, difficulty breathing, dizziness, abdominal pain, vomiting. 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 Review of Systems Constitutional: denies: Fever Nose: denies: Congestion Cardiac: denies: Chest pain / pressure, Palpitations Respiratory: denies: Dyspnea, Cough GI: reports: Bloody / black stool. denies: Abdominal Pain, Vomiting, Constipation : denies: Dysuria, Hematuria Musculoskeletal: denies: Back pain Neurologic: denies: Syncope PD PAST MEDICAL HISTORY - Past Medical History Cardiovascular: Atrial fibrillation Derm: Other - Past Surgical History Past Surgical History: Yes General: Other Derm: Skin cancer surgery - Present Medications Home Medications: Ambulatory Orders Medication Instructions Recorded Confirmed Atorvastatin [Lipitor] 10 mg DAILY 06/06/15 08/08/21 Metoprolol Tartrate [Lopressor] 25 mg PO BID 06/06/15 08/08/21 Warfarin [Coumadin] 2.5 mg PO QDBREAKFAST 06/06/15 08/08/21 Lisinopril [Zestril] 2.5 mg PO DAILY 07/04/21 08/08/21 Aspirin [Aspirin EC] 81 mg PO DAILY 07/29/21 08/08/21 Warfarin [Coumadin] 1.5 mg PO QPM 07/29/21 08/08/21 - Allergies Allergies/Adverse Reactions: Allergies Allergy/AdvReac Type Severity Reaction Status Date / Time No Known Drug Allergies Allergy Verified 08/08/21 04:03 - Social History Does the pt smoke?: No Smoking Status: Never smoker Does the pt drink ETOH?: No Does the pt have substance abuse?: No PD ED PE NORMAL - General General: Alert and oriented X 3, No acute distress, Well developed/nourished - HEENT HEENT: Atraumatic, Moist mucous membranes - Neck Neck: Supple, no meningeal sign - Cardiac Cardiac: RRR, No murmur, Strong equal pulses - Respiratory Respiratory: No respiratory distress, Clear bilaterally - Abdomen Abdomen: Normal bowel sounds, Soft, Non tender, Non distended - Rectal Rectal: Other (Shear Tender present (Claudia RN), gross blood present, External hemorrhoids which are nonthrombosed, no palpable internal masses) - Derm Derm: Normal color - Extremities Extremities: No: No edema (Mild bilateral pitting edema) - Neuro Neuro: Alert and oriented X 3, Normal speech - Psych Psych: Normal mood, Normal affect Results - Vitals Vitals: Vital Signs - 24 hr 08/08/21 08/08/21 03:57 06:12 Temperature 36.4 C L 37.3 C Heart Rate 78 57 L Respiratory 16 17 Rate Blood Pressure 144/82 H 129/77 O2 Saturation 98 97 Oxygen O2 Source Room air - Labs Labs: Microbiology 08/08/21 04:20 Occult Blood - Final Stool Laboratory Tests 08/08/21 08/08/21 08/08/21 04:27 04:27 04:27 WBC 6.3 RBC 4.51 L Hgb 14.5 Hct 42.8 MCV 94.9 H MCH 32.2 H MCHC 33.9 RDW 13.7 Plt Count 155 MPV 11.2 Neut # (Auto) 4.2 Lymph # (Auto) 1.3 L [place] # (Auto) 0.6 Eos # (Auto) 0.1 Baso # (Auto) 0.0 Absolute Nucleated RBC 0.00 Nucleated RBC % 0.0 PT INR Sodium 139 Potassium 4.0 Chloride 107 Carbon Dioxide 22 Anion Gap 10.0 BUN 22 H Creatinine 1.2 Estimated GFR (MDRD) 59 L Glucose 100 Calcium 8.8 Total Bilirubin 1.0 AST 34 ALT 27 Alkaline Phosphatase 72 Total Protein 6.9 Albumin 3.8 Globulin 3.1 Albumin/Globulin Ratio 1.2 Blood Type O POSITIVE Antibody Screen NEGATIVE 08/08/21 04:40 WBC RBC Hgb Hct MCV MCH MCHC RDW Plt Count MPV Neut # (Auto) Lymph # (Auto) [place] # (Auto) Eos # (Auto) Baso # (Auto) Absolute Nucleated RBC Nucleated RBC % PT 28.0 H INR 2.5 H Sodium Potassium Chloride Carbon Dioxide Anion Gap BUN Creatinine Estimated GFR (MDRD) Glucose Calcium Total Bilirubin AST ALT Alkaline Phosphatase Total Protein Albumin Globulin Albumin/Globulin Ratio Blood Type Antibody Screen PD MEDICAL DECISION MAKING - ED course Complexity details: reviewed results, re-evaluated patient, d/w patient ED course: Patient presenting for evaluation of hematochezia. On arrival he appears hemodynamically stable with no abdominal tenderness. Labs reviewed and are reassuring with stable H&H. CT angio of the abdomen pelvis was attempted but unfortunately IV contrast extravasated and unable to secure alternative IV access. Discussed case with on-call surgeon Dr. Anaya who recommends outpatient follow-up as patient appears stable at this time. Patient is to hold his Coumadin until bleeding resolves. I reviewed these recommendations with the patient. CT noncontrast had been obtained and report has a few incidental findings which I reviewed with the patient. He is aware of need for close follow-up Regarding the incidental findings as well as for his rectal bleeding. Patient is also aware of strict return precautions. 0540 - D/W Dr. Anaya. He recommends outpatient colonoscopy as patient is not currently bleeding, is hemodynamically stable with Stable H&H. He does recommend patient to hold his Coumadin until bleeding resolves.He would be able to see the patient for outpatient colonoscopy. Departure - Departure Disposition: 01 Home, Self Care Clinical Impression: Lower GI bleed, Anticoagulation monitoring, INR range 2-3 Condition: Stable Instructions: ED Hematochezia Stable Follow-Up: Arie Anaya MD [Provider Admit Priv/Credential] - Comments: You were evaluated for blood in your stools. Your blood tests were reassuring a nd did not show a drop in your hemoglobin. Your vital signs were also stable and you did not have abdominal pain.I discussed your case with on-call surgeon, Dr. Anaya who recommends an outpatient colonoscopy. Please call your primary care doctor todayAs you may need a referral to Dr. Anaya office. Please hold your Coumadin (warfarin) until the bleeding resolves. Please also reach out to your primary care doctor regarding Restarting your Coumadin next week. If at anytime you develop abdominal pain, feel dizzy, weak, short of breath, have Continued bloody stools please return to the emergency department for evaluation. Your CT scan did have a few incidental findings that you need follow-up with your primary care doctor. 1. Infrarenal abdominal aortic aneurysm measuring 3.3 cm 2. Noncalcified pulmonary nodules in the left lung measuring 7, 4 and 3 mm. 3. Cyst on the right kidney. Recommend an ultrasound of your kidney. Discharge Date/Time: 08/08/21 06:13
[2021-08-08 04:37] LABS: BASOPHILS % (AUTO) 0.6 %; EOSINOPHILS # (AUTO) 0.1 10^3/uL (0.0-0.7); EOSINOPHILS % (AUTO) 2.2 %; HCT - HEMATOCRIT 42.8 % (42.0-52.0); HGB - HEMOGLOBIN 14.5 g/dL (14.0-18.0); LYMPHOCYTES # (AUTO) 1.3 10^3/uL (1.5-3.5); LYMPHOCYTES % (AUTO) 20.7 %; MEAN CORPUSCULAR HEMOGLOBIN 32.2 pg (27.0-31.0); MEAN CORPUSCULAR HGB CONC 33.9 g/dL (32.0-36.0); MEAN CORPUSCULAR VOLUME 94.9 fL (80.0-94.0); MEAN PLATELET VOLUME 11.2 fL (7.4-11.4); MONOCYTES # (AUTO) 0.6 10^3/uL (0.0-1.0); NEUTROPHILS # (AUTO) 4.2 10^3/uL (1.5-6.6); NEUTROPHILS % (AUTO) 66.3 %; PLT - PLATELET COUNT 155 10^3/uL (130-450); RED BLOOD COUNT 4.51 10^6/uL (4.70-6.10); RED CELL DISTRIBUTION WIDTH 13.7 % (12.0-15.0); WHITE BLOOD COUNT 6.3 x10^3/uL (4.8-10.8)
[2021-08-08] MEDS ORDERED: IOPAMIDOL-300 100 ML VIAL ONE (04:45)
[2021-08-08 04:49] LABS: ALBUMIN 3.8 g/dL (3.2-5.5); ALBUMIN/GLOBULIN RATIO 1.2 (1.0-2.2); CALCIUM 8.8 mg/dL (8.5-10.3); CREATININE 1.2 mg/dL (0.6-1.2); TOTAL PROTEIN 6.9 g/dL (6.7-8.2)
[2021-08-08 04:52] LABS: INR 2.5 (0.8-1.2)
[2021-08-08] MEDS ORDERED: IOPAMIDOL-300 100 ML VIAL IVP ONE (05:42)
[2021-08-08 06:13] VITALS: BP 129/77
--- NOTE | 2021-08-08 08:36 | CT Report ---
PROCEDURE: ANGIO ABDOMEN/PELVIS W INDICATIONS: Lower GI bleed CONTRAST: IV CONTRAST: Isovue 300 ml: 100 PO CONTRAST: *NO PO CONTRAST TECHNIQUE: There is no intravenous contrast vascular system due to contrast extravasation at injecti on site. After the administration of intravenous contrast, 2.5 mm thick sections acquired from the diaphragm t o the symphysis. 10 mm maximum-intensity projection (MIP) reformats were then acquired. For radiati on dose reduction, the following was used: automated exposure control, adjustment of mA and/or kV ac cording to patient size. COMPARISON: None. FINDINGS: Image quality: Excellent. Vessels: No intravascular contrast. Mild infrarenal fusiform aortic aneurysm during 3.3 cm AP and 3.3 cm transverse. Suspect focal trabeculation with intimal displacement. Mild-to moderate atherosclerot ic calcifications. Extravascular soft tissues: There is a 4 mm noncalcified nodule in the left lower lobe (series 5 hina ge 4). There is a calcified nodule in the right lower lobe. Lung bases are clear. Heart size is norm al. Small hiatal hernia. Liver and spleen are normal in size and enhancement. Gallbladder is normal. Biliary system is non d ilated. Pancreas enhances normally. No adrenal nodules. Kidneys are normal in size and enhancement, without hydronephrosis. There is a 2.5 cm cyst in the ri ght kidney. Non opacified bowel loops are normal in wall thickness and caliber. Diverticulosis. No diverticuliti s. No free fluid or air. No retroperitoneal or mesenteric adenopathy. Small fat-containing ventral h ernias are present. There is a tiny fat-containing umbilical hernia. There is a small fat-containing right inguinal hernia . No suspicious bony lesions. No vertebral body compression fractures. Degenerative changes are noted . IMPRESSION: 1. Nondiagnostic abdominal pelvic angiogram to contrast extravasation. Recommend repeat examination w hen clinically possible. 2. Mild infrarenal abdominal aortic aneurysm measuring 3.3 cm. There is intimal displacement suspicio us for focal dissection at the site of aneurysm. 3. Diverticulosis without diverticulitis. 4. A 4 mm nodule in the left lower lobe. Please seen closed follow-up recommendation. 5. Small containing ventral hernias, umbilical hernia and right inguinal hernia. Fleischner Society criteria for SOLID lung nodule followup. Nodule size (mm)Low-risk patientHigh-risk patient "d4No follow-up neededFollow-up at 12 mo; if no change, no further follow-up >5-2Tvparo-yd CT at 12 mo; if no change, no further follow-up needed.Initial follow-up CT at 6-12 mo, then 18-24 mo if no change. >6-8Initial follow-up CT at 6-12 mo, then 18-24 mo if no change. Initial follow-up CT at 3-6 mo, then 9-12 mo and 24 mo if no change. >8Follow-up CT at 3, 9, 24 mo. Or PET and/or biopsy.Same as for low-risk pts. No significant discrepancy with the preliminary interpretation. Reviewed by: Malik Champion MD on 08/08/2021 8:35 AM PDT Approved by: Malik Champion MD on 08/08/2021 8:35 AM PDT Station ID: [id number]
== END 2021-08-08 06:13 | disposition home or self-care (01) ==
LOC: ED 03:53
DX: K92.1 Melena (principal); Z79.01 Long term (current) use of anticoagulants
CPT/HCPCS: 36415; 74174; 80053; 82272; 85025; 85610; 86850; 86900; 86901; 99283; 99284; Q9967

== ENCOUNTER 2021-08-19 13:50 | Outpatient (CLI) | payer MEDICARE, OTHER | END 2021-08-19 13:51 | disposition home or self-care (01) | LOC: LAB.N 13:50 | PROVIDERS: ATTEND Internal Medicine | DX: I48.21 Permanent atrial fibrillation (principal); Z79.01 Long term (current) use of anticoagulants | CPT/HCPCS: 36416; 85610 ==

== ENCOUNTER 2021-12-27 01:22 | Emergency (ER) | payer MEDICARE, OTHER ==
[2021-12-27 01:52] LABS: BASOPHILS % (AUTO) 0.7 %; EOSINOPHILS # (AUTO) 0.1 10^3/uL (0.0-0.7); EOSINOPHILS % (AUTO) 2.4 %; HCT - HEMATOCRIT 39.9 % (42.0-52.0); HGB - HEMOGLOBIN 13.5 g/dL (14.0-18.0); LYMPHOCYTES # (AUTO) 1.9 10^3/uL (1.5-3.5); LYMPHOCYTES % (AUTO) 34.1 %; MEAN CORPUSCULAR HEMOGLOBIN 32.8 pg (27.0-31.0); MEAN CORPUSCULAR HGB CONC 33.8 g/dL (32.0-36.0); MEAN CORPUSCULAR VOLUME 97.1 fL (80.0-94.0); MEAN PLATELET VOLUME 10.4 fL (7.4-11.4); MONOCYTES # (AUTO) 0.6 10^3/uL (0.0-1.0); MONOCYTES % (AUTO) 11.5 %; NEUTROPHILS # (AUTO) 2.8 10^3/uL (1.5-6.6); NEUTROPHILS % (AUTO) 51.1 %; PLT - PLATELET COUNT 142 10^3/uL (130-450); RED BLOOD COUNT 4.11 10^6/uL (4.70-6.10); RED CELL DISTRIBUTION WIDTH 13.6 % (12.0-15.0); WHITE BLOOD COUNT 5.5 x10^3/uL (4.8-10.8)
[2021-12-27 01:59] LABS: INR 1.4 (0.8-1.2); PT - PROTHROMBIN TIME 15.8 secs (9.9-12.6)
--- NOTE | 2021-12-27 03:04 | ED Physician Documentation ---
History of Present Illness - Stated complaint Stated Complaint: post surgery bleeding - Chief complaint Chief Complaint: General - History obtained from History obtained from: Patient - History of Present Illness Timing: Prior to arrival - Additonal information Additional information: 76yoM with PMH mild dementia, Afib on warfarin, recent colonoscopy 12/24/21 with hot snare removal of polyp presents by private vehicle for episode of bright red blood in toilet. Hx obtained from patient's daughter, who states that she was told to expect some blood post-procedure, but they should come to the emergency department if there was blood filling the toilet bowl. She states that at 1am her father woke her up and there was a lot of blood in the toilet bowl, so she b rought him to the emergency department. Patient is back on his warfarin. Patient denies pain or complaints. Review of Systems Ten Systems: 10 systems reviewed and negative Constitutional: denies: Fever, Chills GI: reports: Bloody / black stool. denies: Abdominal Pain, Nausea, Vomiting, Constipation, Diarrhea Musculoskeletal: denies: Neck pain, Back pain, Joint pain PD PAST MEDICAL HISTORY - Past Medical History Past Medical History: Yes Cardiovascular: Hypertension, High cholesterol, Atrial fibrillation Respiratory: None Endocrine/Autoimmune: None, Other GI: None : None Musculoskeletal: None Derm: Other - Past Surgical History Past Surgical History: Yes General: Other HEENT: Tonsil/Adenoidectomy Derm: Skin cancer surgery - Present Medications Home Medications: Ambulatory Orders Medication Instructions Recorded Confirmed Atorvastatin [Lipitor] 80 mg DAILY 06/06/15 12/17/21 Metoprolol Tartrate [Lopressor] 25 mg PO BID 06/06/15 12/24/21 Warfarin [Coumadin] 2.5 mg PO QDBREAKFAST 06/06/15 12/24/21 Lisinopril [Zestril] 2.5 mg PO DAILY 07/04/21 12/24/21 Aspirin [Aspirin EC] 81 mg PO DAILY 07/29/21 12/24/21 Enoxaparin Sodium [Lovenox] 40 mg SQ DAILY 12/24/21 12/24/21 - Allergies Allergies/Adverse Reactions: Allergies Allergy/AdvReac Type Severity Reaction Status Date / Time No Known Drug Allergies Allergy Verified 12/27/21 01:29 - Social History Does the pt smoke?: No Smoking Status: Never smoker Does the pt drink ETOH?: No Does the pt have substance abuse?: No - POLST Patient has POLST: No PD ED PE NORMAL - Vitals Vital signs reviewed: Yes - General General: Alert and oriented X 3, No acute distress, Well developed/nourished - HEENT HEENT: Atraumatic, PERRL, EOMI - Neck Neck: Supple, no meningeal sign, No bony TTP, C-Spine cleared by NEXUS criteria - Cardiac Cardiac: No murmur, Strong equal pulses, Other (irregularly irregular) - Respiratory Respiratory: No respiratory distress, Clear bilaterally - Abdomen Abdomen: Soft, Non tender, Non distended - Rectal Rectal: Other (dried blood around anus. rectal tone intact) - Derm Derm: Normal color, Warm and dry, No rash, Other (bruising around abdomen) - Extremities Extremities: No deformity, No tenderness to palpate, Normal ROM s pain - Neuro Neuro: Alert and oriented X 3, chief development officer 2-12 intact, No motor deficit, No sensory deficit, Normal speech - Psych Psych: Normal mood, Normal affect Results - Vitals Vitals: Vital Signs - 24 hr 12/27/21 12/27/21 01:26 03:29 Temperature 36.4 C L 36.4 C L Heart Rate 71 66 Respiratory 18 18 Rate Blood Pressure 112/68 125/65 O2 Saturation 98 97 Oxygen O2 Source Room air - Labs Labs: Laboratory Tests 12/27/21 12/27/21 01:47 01:47 WBC 5.5 RBC 4.11 L Hgb 13.5 L Hct 39.9 L MCV 97.1 H MCH 32.8 H MCHC 33.8 RDW 13.6 Plt Count 142 MPV 10.4 Neut # (Auto) 2.8 Lymph # (Auto) 1.9 [place] # (Auto) 0.6 Eos # (Auto) 0.1 Baso # (Auto) 0.0 Absolute Nucleated RBC 0.00 Nucleated RBC % 0.0 PT 15.8 H INR 1.4 H PD MEDICAL DECISION MAKING - ED course ED course: Episode of hematochezia. Dried blood on rectal exam, however no pain at this time. Patient's surgeon consulted, who stated that if hemoglobin stable and if INR at goal patient can be observed for several hours and if no further episodes he can be discharged home. Hgb 13.5, INR 1.4 (goal 2-3). Patient hemodynamically stable, no further episodes of blood. Patient's daughter upset, asking how he can be sent home after being told to come to the emergency department for bleeding and asking how we can send her father home with this happening. Dr. Mckeon graciously spoke to daughter on phone and answered her questions and provided reassurance. Daughter subsequently stated that she understands the course of her father's recovery and is comfortable going home at this time. - Consults Consults: Consulted (name) (Dr. Mckeon (General surgeon)), Other (If patient's hgb stable and INR not needing to be corrected patient can be discharged home.) Departure - Departure Disposition: 01 Home, Self Care Clinical Impression: Colonoscopy causing post-procedural bleeding Condition: Stable Instructions: ED Hematochezia Stable Comments: Your hemoglobin today was 13.5, your INR was 1.4. Please follow-up with your g eneral surgeon as previously scheduled.
[2021-12-27 03:30] VITALS: BP 125/65
== END 2021-12-27 03:29 | disposition home or self-care (01) ==
LOC: ED 01:22
DX: N99.820 Postprocedural hemorrhage of a genitourinary system organ or structure following a genitourinary system procedure (principal); I48.91 Unspecified atrial fibrillation; Z79.01 Long term (current) use of anticoagulants; I10 Essential (primary) hypertension
CPT/HCPCS: 36415; 85025; 85610; 99282; 99283

== ENCOUNTER 2022-03-12 17:01 | Outpatient (CLI) | payer MEDICARE, OTHER ==
--- NOTE | 2022-03-13 11:53 | Ultrasound Report ---
PROCEDURE: Ext Limited Non Vascular INDICATIONS: AXILLARY LYMPHADENOPATHY TECHNIQUE: Real-time scanning was performed of the right axilla, with image documentation. COMPARISON: None. FINDINGS: No right axillary lymphadenopathy is seen. No significant sonographic abnormality is seen at the area of clinical concern. IMPRESSION: No significant lymphadenopathy or soft tissue mass is seen in the patient indicated area of concern at the right axilla. Reviewed by: Kirt Bull MD on 03/13/2022 11:51 AM PST Approved by: Kirt Bull MD on 03/13/2022 11:51 AM PST Station ID: [id number]
== END 2022-03-12 17:02 | disposition home or self-care (01) ==
LOC: DI 17:01
PROVIDERS: ATTEND Physician Assistant
DX: R59.0 Localized enlarged lymph nodes (principal)

== ENCOUNTER 2022-12-10 08:56 | Outpatient (CLI) | payer MEDICARE, OTHER ==
--- NOTE | 2022-12-10 09:40 | CT Report ---
PROCEDURE: HEAD WO INDICATIONS: DIPLOPIA TECHNIQUE: Noncontrast 4.5 mm thick angled axial sections acquired from the foramen magnum to the vertex. For r adiation dose reduction, the following was used: automated exposure control, adjustment of mA and/or kV according to patient size. COMPARISON: CT head 07/31/2021. FINDINGS: Image quality: Excellent. CSF spaces: Basal cisterns are patent. No extra-axial fluid collections. The ventricles and sulci are enlarged, consistent with moderate global volume loss. Brain: No midline shift. No intracranial masses or hemorrhage. Peña-white matter interface is norm al. Areas of hypoattenuation within the deep and periventricular white matter, nonspecific and likely representing chronic microvascular ischemic change. Age-related global volume loss. Atherosclerotic vascular calcifications. Skull and face: Calvarium and visualized facial bones are intact, without suspicious lesions. Sinuses: Visualized sinuses and mastoids are clear. IMPRESSION: 1.No acute intracranial pathology. 2.Age-related global volume loss and chronic microvascular ischemic change. Reviewed by: Ernesto Leong MD on 12/10/2022 9:39 AM PDT Approved by: Ernesto Leong MD on 12/10/2022 9:39 AM PDT Station ID: [id number]
== END 2022-12-10 08:57 | disposition home or self-care (01) ==
LOC: DI 08:56
PROVIDERS: ATTEND Internal Medicine
DX: H53.2 Diplopia (principal); G31.89 Other specified degenerative diseases of nervous system; I67.82 Cerebral ischemia

== ENCOUNTER 2023-07-08 09:07 | Outpatient (CLI) | payer MEDICARE, OTHER | END 2023-07-08 09:08 | disposition home or self-care (01) | LOC: LAB 09:07 | PROVIDERS: ATTEND Internal Medicine | DX: I48.91 Unspecified atrial fibrillation (principal); H53.2 Diplopia; Z79.01 Long term (current) use of anticoagulants; R73.03 Prediabetes | CPT/HCPCS: 36416; 85610 ==